=== PATIENT | male | born 1995 | race American Indian/Alaskan Native ===

== ENCOUNTER 2017-08-21 17:41 | Emergency (ER) | payer MEDICAID, OTHER ==
[2017-08-21 17:47] VITALS: BP 121/65
[2017-08-22] MEDS ORDERED: DUONEB *Not for PRN Use IH ONE (01:25)
[2017-08-22] MEDS ORDERED: DELTASONE PO ONE (01:26)
[2017-08-22] MEDS ORDERED: ZITHROMAX PO ONE (01:27)
--- NOTE | 2017-08-22 01:33 | Emergency Department Report ---
- General Chief Complaint: Upper Respiratory Infection Stated Complaint: COUGH/CONGESTION Time Seen by Provider: 08/22/17 01:19 Source: patient Mode of arrival: Ambulatory Limitations: No Limitations - History of Present Illness Initial Comments: Patient is complaining of cough and shortness of breath has been going on about 3 days. He is also complaining of wheezing. He denies any fever. Shortness of breath is worse on exertion. MD Complaint: cough, nasal congestion -: Gradual Severity: moderate Consistency: intermittent Improves With: nothing Worsens With: activity Associated Symptoms: cough, shortness of breath Treatments Prior to Arrival: none - Related Data Previous Rx's Medication Instructions Recorded Last Taken Type Acetaminophen/Codeine [Tylenol #3] 1 tab PO Q6H PRN #20 tablet 12/29/14 Unknown Rx Penicillin Vk [Veetids TAB] 500 mg PO Q8H #30 tablet 12/29/14 Unknown Rx HYDROcodone/APAP 5-325 [[place] 1 each PO Q6HR PRN #6 tablet 04/17/16 Unknown Rx 5/325] Penicillin Vk [Veetids TAB] 250 mg PO QID #40 tablet 04/17/16 Unknown Rx Albuterol Sulfate [Ventolin HFA] 2 puff IH Q4H PRN #1 hfa.aer.ad 08/22/17 Unknown Rx Azithromycin 250 mg PO DAILY 4 Days #4 tablet 08/22/17 Unknown Rx predniSONE [Deltasone] 50 mg PO QDAY #5 tab 08/22/17 Unknown Rx Allergies Allergy/AdvReac Type Severity Reaction Status Date / Time No Known Allergies Allergy Verified 08/21/17 17:45 ED Review of Systems ROS: Stated complaint: COUGH/CONGESTION Other details as noted in HPI Comment: All other systems reviewed and negative ED Past Medical Hx - Past Medical History Previous Medical History?: No Additional medical history: Toothache - Surgical History Past Surgical History?: No - Social History Smoking Status: Current Every Day Smoker Substance Use Type: Marijuana - Medications Home Medications: Home Medications Medication Instructions Recorded Confirmed Last Taken Type Acetaminophen/Codeine [Tylenol #3] 1 tab PO Q6H PRN #20 tablet 12/29/14 Unknown Rx Penicillin Vk [Veetids TAB] 500 mg PO Q8H #30 tablet 12/29/14 Unknown Rx HYDROcodone/APAP 5-325 [[place] 1 each PO Q6HR PRN #6 tablet 04/17/16 Unknown Rx 5/325] Penicillin Vk [Veetids TAB] 250 mg PO QID #40 tablet 04/17/16 Unknown Rx Albuterol Sulfate [Ventolin HFA] 2 puff IH Q4H PRN #1 hfa.aer.ad 08/22/17 Unknown Rx Azithromycin 250 mg PO DAILY 4 Days #4 tablet 08/22/17 Unknown Rx predniSONE [Deltasone] 50 mg PO QDAY #5 tab 08/22/17 Unknown Rx ED Physical Exam - General Limitations: No Limitations General appearance: alert, in no apparent distress - Head Head exam: Present: atraumatic, normocephalic - Eye Eye exam: Present: normal appearance - ENT ENT exam: Present: mucous membranes moist - Neck Neck exam: Present: normal inspection - Respiratory Respiratory exam: Present: wheezes (diffuse). Absent: respiratory distress - Cardiovascular Cardiovascular Exam: Present: regular rate, normal rhythm. Absent: systolic murmur, diastolic murmur, rubs, gallop - GI/Abdominal GI/Abdominal exam: Present: soft, normal bowel sounds. Absent: tenderness - Rectal Rectal exam: Present: deferred - Extremities Exam Extremities exam: Present: normal inspection - Back Exam Back exam: Present: normal inspection - Neurological Exam Neurological exam: Present: alert, oriented X3 - Psychiatric Psychiatric exam: Present: normal affect, normal mood - Skin Skin exam: Present: warm, dry, intact, normal color. Absent: rash ED Course Vital Signs 08/21/17 17:45 Temperature 98 F Pulse Rate 68 Respiratory 16 Rate Blood Pressure 121/65 O2 Sat by Pulse 99 Oximetry ED Medical Decision Making - Radiology Data Radiology results: image reviewed Critical care attestation.: If time is entered above; I have spent that time in minutes in the direct care of this critically ill patient, excluding procedure time. ED Disposition Clinical Impression: Acute bronchitis Disposition: DC- TO HOME OR SELFCARE Is pt being admited?: No Does the pt Need Aspirin: No Condition: Stable Instructions: Acute Bronchitis (ED) Prescriptions: Albuterol Sulfate [Ventolin HFA] 2 puff IH Q4H PRN #1 hfa.aer.ad PRN Reason: Shortness Of Breath Azithromycin 250 mg PO DAILY 4 Days #4 tablet predniSONE [Deltasone] 50 mg PO QDAY #5 tab Referrals: PRIMARY CARE, [Primary Care Provider] - 3-5 Days Time of Disposition: 01:37 Print Language: GREEK
--- NOTE | 2017-08-22 01:38 | XRay Report ---
FINAL REPORT EXAM: XR CHEST 1V AP HISTORY: sob TECHNIQUE: A single view of the chest was obtained. FINDINGS: The heart size and mediastinum appear normal. The lungs are clear. Pleural fluid is not seen. The bones and soft tissues are well maintained. IMPRESSION: Normal chest.
== END 2017-08-22 02:04 | disposition home or self-care (01) ==
LOC: ED 17:41
DX: J20.9 Acute bronchitis, unspecified (principal); F17.200 Nicotine dependence, unspecified, uncomplicated; F12.10 Cannabis abuse, uncomplicated
CPT/HCPCS: 71045; 94640; 99283; J7512

== ENCOUNTER 2018-12-22 07:10 | Emergency (ER) | payer SELFPAY ==
[2018-12-22 07:21] VITALS: BP 129/75
--- NOTE | 2018-12-22 08:40 | Emergency Department Report ---
ED ENT HPI - General Chief complaint: Dental/Oral Stated complaint: RT SIDE TOOTHACHE/PAIN Time Seen by Provider: 12/22/18 07:29 Source: patient Mode of arrival: Ambulatory Limitations: No Limitations - History of Present Illness MD complaint: tooth pain -: Gradual (acute on chronic, recurrent dentalgia), Sudden Location: tooth # Severity: moderate Quality: dull Consistency: constant Improves with: none Worsens with: none Associated Symptoms: toothache. denies: fever, cough, gum swelling, pain with swallowing, sore throat, tinnitus, discharge from ear, rhinorrhea - Related Data Previous Rx's Medication Instructions Recorded Last Taken Type Acetaminophen/Codeine [Tylenol #3] 1 tab PO Q6H PRN #20 tablet 12/29/14 Unknown Rx Penicillin Vk [Veetids TAB] 500 mg PO Q8H #30 tablet 12/29/14 Unknown Rx HYDROcodone/APAP 5-325 [[place] 1 each PO Q6HR PRN #6 tablet 04/17/16 Unknown Rx 5/325] Penicillin Vk [Veetids TAB] 250 mg PO QID #40 tablet 04/17/16 Unknown Rx Albuterol Sulfate [Ventolin HFA] 2 puff IH Q4H PRN #1 hfa.aer.ad 08/22/17 Unknown Rx Azithromycin 250 mg PO DAILY 4 Days #4 tablet 08/22/17 Unknown Rx predniSONE [Deltasone] 50 mg PO QDAY #5 tab 08/22/17 Unknown Rx Amoxicillin [Amoxicillin TAB] 875 mg PO BID #20 tablet 12/22/18 Unknown Rx Chlorhexidine Mouthwash [Peridex] 15 ml MM BID #473 bottle 12/22/18 Unknown Rx Lidocaine Viscous 2% 5 ml MM Q3H PRN #120 udc 12/22/18 Unknown Rx Allergies Allergy/AdvReac Type Severity Reaction Status Date / Time No Known Allergies Allergy Verified 12/22/18 07:15 ED Dental HPI - General Chief complaint: Dental/Oral Stated complaint: RT SIDE TOOTHACHE/PAIN Time Seen by Provider: 12/22/18 07:29 Source: patient Mode of arrival: Ambulatory Limitations: No Limitations - Related Data Previous Rx's Medication Instructions Recorded Last Taken Type Acetaminophen/Codeine [Tylenol #3] 1 tab PO Q6H PRN #20 tablet 12/29/14 Unknown Rx Penicillin Vk [Veetids TAB] 500 mg PO Q8H #30 tablet 12/29/14 Unknown Rx HYDROcodone/APAP 5-325 [[place] 1 each PO Q6HR PRN #6 tablet 04/17/16 Unknown Rx 5/325] Penicillin Vk [Veetids TAB] 250 mg PO QID #40 tablet 04/17/16 Unknown Rx Albuterol Sulfate [Ventolin HFA] 2 puff IH Q4H PRN #1 hfa.aer.ad 08/22/17 Un known Rx Azithromycin 250 mg PO DAILY 4 Days #4 tablet 08/22/17 Unknown Rx predniSONE [Deltasone] 50 mg PO QDAY #5 tab 08/22/17 Unknown Rx Amoxicillin [Amoxicillin TAB] 875 mg PO BID #20 tablet 12/22/18 Unknown Rx Chlorhexidine Mouthwash [Peridex] 15 ml MM BID #473 bottle 12/22/18 Unknown Rx Lidocaine Viscous 2% 5 ml MM Q3H PRN #120 udc 12/22/18 Unknown Rx Allergies Allergy/AdvReac Type Severity Reaction Status Date / Time No Known Allergies Allergy Verified 12/22/18 07:15 ED Review of Systems ROS: Stated complaint: RT SIDE TOOTHACHE/PAIN Other details as noted in HPI Comment: All other systems reviewed and negative ED Past Medical Hx - Past Medical History Previous Medical History?: No Additional medical history: Toothache - Surgical History Hx Appendectomy: Yes - Social History Smoking Status: Current Every Day Smoker Substance Use Type: Alcohol, Marijuana - Medications Home Medications: Home Medications Medication Instructions Recorded Confirmed Last Taken Type Acetaminophen/Codeine [Tylenol #3] 1 tab PO Q6H PRN #20 tablet 12/29/14 Unknown Rx Penicillin Vk [Veetids TAB] 500 mg PO Q8H #30 tablet 12/29/14 Unknown Rx HYDROcodone/APAP 5-325 [[place] 1 each PO Q6HR PRN #6 tablet 04/17/16 Unknown Rx 5/325] Penicillin Vk [Veetids TAB] 250 mg PO QID #40 tablet 04/17/16 Unknown Rx Albuterol Sulfate [Ventolin HFA] 2 puff IH Q4H PRN #1 hfa.aer.ad 08/22/17 Unknown Rx Azithromycin 250 mg PO DAILY 4 Days #4 tablet 08/22/17 Unknown Rx predniSONE [Deltasone] 50 mg PO QDAY #5 tab 08/22/17 Unknown Rx Amoxicillin [Amoxicillin TAB] 875 mg PO BID #20 tablet 12/22/18 Unknown Rx Chlorhexidine Mouthwash [Peridex] 15 ml MM BID #473 bottle 12/22/18 Unknown Rx Lidocaine Viscous 2% 5 ml MM Q3H PRN #120 udc 12/22/18 Unknown Rx ED Physical Exam - General Limitations: No Limitations General appearance: alert, in no apparent distress - Head Head exam: Present: atraumatic, normocephalic - Eye Eye exam: Present: normal appearance, PERRL, EOMI - ENT ENT exam: Present: mucous membranes moist, other (2. Dental caries with some adjacent gingival or erythema and tenderness with palpation. No active abscesses appreciated. Tongue and uvula are arm are midline. No exudate. Airway is patent) - Neck Neck exam: Present: normal inspection - Respiratory Respiratory exam: Present: normal lung sounds bilaterally. Absent: respiratory distress, rales, rhonchi - Cardiovascular Cardiovascular Exam: Present: regular rate, normal rhythm. Absent: systolic murmur, diastolic murmur, rubs, gallop - GI/Abdominal GI/Abdominal exam: Present: soft, normal bowel sounds - Rectal Rectal exam: Present: deferred - Extremities Exam Extremities exam: Present: normal inspection - Back Exam Back exam: Present: normal inspection - Neurological Exam Neurological exam: Present: alert, oriented X3 - Psychiatric Psychiatric exam: Present: normal affect, normal mood - Skin Skin exam: Present: warm, dry, intact, normal color. Absent: rash ED Course Vital Signs 12/22/18 07:15 Temperature 97.7 F Pulse Rate 57 L Respiratory 16 Rate Blood Pressure 129/75 O2 Sat by Pulse 100 Oximetry Critical care attestation.: If time is entered above; I have spent that time in minutes in the direct care of this critically ill patient, excluding procedure time. ED Disposition Clinical Impression: Toothache Disposition: DC-01 TO HOME OR SELFCARE Is pt being admited?: No Does the pt Need Aspirin: No Condition: Stable Instructions: Dental Caries (ED), Acute dental trauma (ED), Toothache (ED) Prescriptions: Amoxicillin [Amoxicillin TAB] 875 mg PO BID #20 tablet Lidocaine Viscous 2% 5 ml MM Q3H PRN #120 udc PRN Reason: Pain, Moderate (4-6) Chlorhexidine Mouthwash [Peridex] 15 ml MM BID #473 bottle
== END 2018-12-22 09:03 | disposition home or self-care (01) ==
LOC: ED 07:10
DX: K08.89 Other specified disorders of teeth and supporting structures (principal); F17.200 Nicotine dependence, unspecified, uncomplicated; F12.10 Cannabis abuse, uncomplicated; Z79.899 Other long term (current) drug therapy
CPT/HCPCS: 99282